=== PATIENT | female | born 1985 | race Two or more races ===

== ENCOUNTER 2023-03-15 16:39 | Emergency (ER) | payer SELFPAY ==
[~2023-03-15] VITALS: Ht 160 cm; Wt 70.0 kg
[2023-03-15 17:11] VITALS: BP 155/101; PULSE 77; RESP 16; TEMP 97.7; O2SAT 100
[2023-03-15] MEDS ORDERED: IBUPROFEN 600 MG TAB PO ONE (20:15)
[2023-03-15] MEDS ORDERED: TETANUS-DIPTH-ACEL PERTUSSIS 0.5ML SYR Tdap IM ONE (20:45)
[2023-03-15] MEDS ORDERED: NEOMYCIN-BACITRACIN-POLYM UNITDOSE PKG TOP OINT TOP ONE (20:45)
[2023-03-15] MEDS ORDERED: CEPHALEXIN 250 MG CAP PO ONE (20:45)
[2023-03-15] MEDS ORDERED: CEPH500C PO (20:47)
[2023-03-15] MEDS ORDERED: MUPI2OIN2 EX (20:47)
== END 2023-03-15 21:10 | disposition home or self-care (01) ==
LOC: ER 16:39
DX: S60.410A Abrasion of right index finger, initial encounter (principal); S60.414A Abrasion of right ring finger, initial encounter; S60.416A Abrasion of right little finger, initial encounter; W22.8XXA Striking against or struck by other objects, initial encounter; Y93.89 Activity, other specified; Y92.89 Other specified places as the place of occurrence of the external cause; Y99.8 Other external cause status
CPT/HCPCS: 73130; 90471; 90715